=== PATIENT | female | born 1990 | race Caucasian/White ===

== ENCOUNTER 2018-12-29 07:42 | Emergency (ER) | payer MEDICAID ==
[~2018-12-29] VITALS: Ht 165.1 cm; Wt 113.6 kg
[2018-12-29] MEDS ORDERED: guaiFENesin/DM 10ml UD oral syrup PO ONE (08:10)
[2018-12-29] MEDS ORDERED: benzonatate 100mg capsule PO ONE (08:10)
[2018-12-29] MEDS ORDERED: ALBU18HF2 INH (08:30)
[2018-12-29] MEDS ORDERED: ROBDML PO (08:30)
[2018-12-29] MEDS ORDERED: BENZ-16 PO (08:30)
[2018-12-29 08:46] VITALS: BP 147/82
== END 2018-12-29 08:49 | disposition home or self-care (01) ==
LOC: ER 07:43
DX: J20.9 Acute bronchitis, unspecified (principal); J02.9 Acute pharyngitis, unspecified; J45.909 Unspecified asthma, uncomplicated; Z79.899 Other long term (current) drug therapy
CPT/HCPCS: 99283

== ENCOUNTER 2023-03-26 14:52 | Emergency (ER) | payer BC, MEDICAID ==
[~2023-03-26] VITALS: Ht 170.2 cm; Wt 111.4 kg
[~2023-03-26 14:52] MED LIST: ALBU18HF2 INH
[2023-03-26] MEDS ORDERED: ketorolac trometh. 30mg/ml inj. IM ONE (16:35)
[2023-03-26] MEDS ORDERED: IBUP-1984 PO (16:48)
[2023-03-26 17:23] VITALS: BP 140/94; PULSE 97; RESP 16; TEMP 98.7; O2SAT 100
[2023-03-26] MEDS ORDERED: CRUTCH (17:24)
== END 2023-03-26 17:30 | disposition home or self-care (01) ==
LOC: ER 14:53
DX: S83.8X1A Sprain of other specified parts of right knee, initial encounter (principal); J45.909 Unspecified asthma, uncomplicated; Z88.0 Allergy status to penicillin; Z79.899 Other long term (current) drug therapy; W18.39XA Other fall on same level, initial encounter; Y93.89 Activity, other specified; Y92.89 Other specified places as the place of occurrence of the external cause; Y99.8 Other external cause status
CPT/HCPCS: 29505; 73564; 96372; 99283; J1885